=== PATIENT | male | born 1975 | race African-American/Black ===

== ENCOUNTER 2017-01-10 14:17 | Emergency (ER) | payer SELFPAY ==
--- NOTE | 2017-01-10 15:08 | Emergency Room Report ---
History of Present Illness General Chief Complaint: To Be Triaged Present Illness HPI Left without being seen prior to triage. Medical Decision Making PA Attestation Dr. Hunt is my supervising Physician whom patient management has been discussed with. ER Course Left without being seen prior to triage. Disposition: LEFT W/OUT BEING SEEN Referrals: NOT CHOSEN IPA/,REFERRING (PCP) Nargis Diaz Jan 10, 2017 15:08
== END 2017-01-10 14:45 | disposition left against medical advice (07) ==
LOC: EMR 14:45
DX: Z53.21 Procedure and treatment not carried out due to patient leaving prior to being seen by health care provider (principal)